=== PATIENT | female | born 1985 | race Caucasian/White ===

== ENCOUNTER 2018-05-09 08:46 | Inpatient (IN) | payer MEDICAID ==
[~2018-05-09] VITALS: Ht 167.6 cm; Wt 113.4 kg
[~2018-05-09 08:46] MED LIST: ACE3 PO; ALBU8.5H12 IH; BUSP10TA95 PO; CITA-137 PO; CLI150 PO; CLON-327 PO; DUL100/5PT INH; NO CURRENT MEDS; NO ROUTINE MEDS; ONDA4TAB97 PO; PARO-243 PO; PER PO; PNV1COMB5; PRO25 PO
[2018-05-09] MEDS ORDERED: OXYTOCIN 30 UNIT/D5LR 500 ML 500 ML IV PRN ×2 (09:02→12:49)
[2018-05-09] MEDS ORDERED: FAMOTIDINE(*) 20MG/50ML PREMIX 50 ML IVPB PRN (09:02)
[2018-05-09] MEDS ORDERED: LIDOCAINE/SOD BICARB 8.4% SYR SC PRN (09:05)
[2018-05-09] MEDS ORDERED: LIDOCAINE 1% LOCAL 300 MG/30ML INJ PRN (09:05)
[2018-05-09] MEDS ORDERED: FLUSH 10 ML SYR IVP PRN (09:05)
[2018-05-09] MEDS ORDERED: METOCLOPRAMIDE 10 MG/2 ML SDV IVP PRN (09:05)
[2018-05-09] MEDS ORDERED: cefOXitin/DEX(*) 2GM/50ML PREM 50 ML IVPB PRN (09:05)
[2018-05-09] MEDS ORDERED: fentaNYL CITR 100 MCG/2 ML AMP IVP PRN (09:05)
[2018-05-09] MEDS ORDERED: LIDOCAINE/PF 2% 200MG/10ML AMP 200 MG/10 ML AMPUL EPI PRN (09:10)
[2018-05-09] MEDS ORDERED: BUPIVACAINE 0.25% MPF INJ EPI PRN (09:10)
[2018-05-09] MEDS ORDERED: LIDO/EPI 2% MPF 1:200,000 20ML EPI PRN (09:10)
[2018-05-09] MEDS ORDERED: fentaNYL CITR 100 MCG/2 ML AMP IT PRN (09:10)
[2018-05-09] MEDS ORDERED: BUPIVACAINE 0.5% INJ 30ML VIAL EPI PRN (09:10)
[2018-05-09 09:20] VITALS: BP 145/86; Ht 167.6 cm; Wt 113.4 kg
[2018-05-09 09:20] LABS: PLATELET COUNT, AUTOMATED 243 K/uL (150-450)
[2018-05-09] MEDS ORDERED: ONDANSETRON 4 MG/2 ML VIAL IVP ONE (09:20)
[2018-05-09] MEDS: LR(*) 1000 ML BAG 1,000 ML IV SCH ×4 (09:29→15:42)
[2018-05-09] MEDS ORDERED: EPIDURAL KEYS XX PRN (09:30)
[2018-05-09] MEDS ORDERED: ONDANSETRON 4 MG/2 ML VIAL ONE (09:32)
[2018-05-09] MEDS: FENTANYL/ROPIVACAINE 100 ML BAG EPI PRN (10:12)
--- NOTE | 2018-05-09 13:39 | History & Physical ---
History of Present Illness Age of Patient: 32 : 4 Para or TPAL: 0 EDC per LMP: May 11, 2018 Estimated Gestational Age: 39.5 Chief Complaint Labor History of Present Illness Presents for labor this morning. Reports contractions regular and painful since 2-3 am. No leaking fluid. uncomplicated to date other than obesity. Presented at 6.5 cm and is now 9 cm. Station is still very high however. Past Medical, Surgical, Family and Obstetric Histories reviewed. Please see ACOG chart. History Allergies: Coded Allergies: No Known Drug Allergies (Unverified , 05/09/18) Med Rec Home Meds Active Scripts Albuterol Sul Hfa 90 Mcg 8 Gm (VENTOLIN HFA 90 MCG 8 GM) 8.5 Gm Hfa.aer.ad, 2 PUFF IH Q4-6H, #1 Prov:ELIZABETH FLORES DO 11/30/14 Reported Medications Pnv #116/Iron Fumarate/Fa/Dha (EXPECTA COMBO PACK) 1 Each Combo..pkg 04/24/18 Mometasone/Formoterol (DULERA 100 MCG/5 MCG INHALER) 13 Gm Inh, 2 PUFF INH QDAY, INH 03/15/15 Review of Systems All Systems Reviewed/Normal: Yes, Except as Noted Exam General Exam General Apperance: Alert/Awake/No Acute Distress Neuro: No Gross deficits Eyes: Normal Extraocular Movement & Vison Cardiovascular: Regular Rate and Rhythm Respiratory: No Respiratory Distress, Clear to Auscultation Abdomen: Soft, Non-Tender, Non-Distended Extremities: No Cyanosis,Clubbing or Edema Integumentary: Skin Intact without Lesions or Rash Psychological: Alert & Oriented X3, Appropriate Mood & Affect Cervical Dialation: 9 Cervical Effacement (%): 100 Station: -1 Presentation: Vertex Fetus Heart Tone Variabilty: Moderate FHT Accelerations: 15X15 FHT Category: I Medical Decision Making Data Points Result Diagram: 05/09/18 0905 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
[2018-05-09] MEDS ORDERED: HYDROCORTISONE 2.5% CR 30GM TB PR PRN (18:30)
[2018-05-09] MEDS ORDERED: ACETAMINOPHEN 325 MG TAB PO PRN (18:30)
[2018-05-09] MEDS ORDERED: MAGNESIUM HYDROXIDE* 30ML UDCP PO PRN (18:30)
--- NOTE | 2018-05-09 18:35 | OB Delivery Note ---
Delivery Note Vaginal Delivery Type: Spont. Vaginal Delivery Delivery Date: May 09, 2018 Delivery Time: 17:38 Estimated Gestational Age(wks): 39.5 Delivery Anesthesia: Epidural Sex: Male Infant Weight (gms): 3430 [place] Apgars: 1 Minute (9), 5 Minute (10) Repair Needed: Laceration, 1st Degree Estimated Blood Loss: 300 Delivery Complications: Laceration Notes: Pt in dorsal lithotomy position and pushing effectively. Brought vtx to position and delivered over first degree lacerations. Compound presentation in KIKO position with left hand up by infants chin. Nuchal cord x 1. Remainder of baby delivered without difficulty. Placenta delivered intact and spontaneous. Laceration repaired with 2-0 Chromic without complication. Bleeding light and uterus firm. 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
--- NOTE | 2018-05-09 19:13 | Anesthesia OB Pre-Anes Eval ---
History of Present Illness Anesthesia Start Date: May 09, 2018 Anesthesia Start Time: 09:35 OB Anesthesia Diagnosis: spontaneous labor Current Complication: obesity : 1 Result Diagram: 05/09/18 0905 Weight (Pounds): 250 Past Medical History Medical History: asthma (No recent exacerbations) Surgical History: noncontributory Previous Anesthesia: general Attended Childbirth Classes?: No Hx Anesthesia Reactions: No Hx Family Anesthesia Reaction: No Past Complications: obesity, other (Miscarriage X1, Ectopic X2) Home Meds Active Scripts Albuterol Sul Hfa 90 Mcg 8 Gm (VENTOLIN HFA 90 MCG 8 GM) 8.5 Gm Hfa.aer.ad, 2 PUFF IH Q4-6H, #1 Prov:ELIZABETH FLORES DO 11/30/14 Reported Medications Pnv #116/Iron Fumarate/Fa/Dha (EXPECTA COMBO PACK) 1 Each Combo..pkg 04/24/18 Mometasone/Formoterol (DULERA 100 MCG/5 MCG INHALER) 13 Gm Inh, 2 PUFF INH QDAY, INH 03/15/15 Allergies: Coded Allergies: No Known Drug Allergies (Unverified , 05/09/18) Anesthesia OB ROS Pulmonary: smoker (pks/day/yrs) Airway Class: ll GI ROS: clear liquids, ice chips Last Solids Date: May 09, 2018 Last Solids Time: 04:00 ASA Classification: 2 Assessment and Plan Anesthesia Plan: CSE Anesthesia Stop Day: May 09, 2018 Anesthesia Stop Time: 17:50 Epidural Catheter Removal: Removed by: (Catheter will be removed by RN at more convenient time.) SURESH BECERRA CRNA May 09, 2018 11:57
--- NOTE | 2018-05-09 19:15 | Procedure Note ---
Anesthetic Placement Note Anesthesia Plan: CSE Permit for Anesthesia Signed: Yes Anesthesia Technique: Patient Sitting Anesthesia Prep: Betadine Interspace: L 4-5 Local Anesthetic: 1% Lidocaine, 25 Gauge Needle Amount Local - cc's: 6 Anesthesia Needle: 17g Touhy/Schliff Anesthesia Attempts: 3 Loss of Resistance: Normal Saline Depth of EDILMA (cm): 9 Intrathecal Needle: 27 Gauge Pencan Cerebral Spinal Fluid: Yes, Clear Catheter Insertion (cm): 6 Catheter Type: Mejia - Spring Wound Epidural Dressing: Tegaderm, Tape, Adhesive [place] Anesthesia Tray: Lot Number ([id number]), Expiration Date (2019-05-07), Reference Number ([id number]) Comment: Attempted SAB L3-4 due to pt's inability to remain immobile, unsuccessful (pt. very nervous, jumpy). Attempted epidural placement at L3-4 without success. Moved down to L4-5, able to place epidural needle using midline approach. IT i njection using 27ga needle, but not good CSF flow before injection (no heme or paresthesia). Catheter threaded easily without heme or paresthesia, negative aspiration. Good analgesia after loading doses with minimal motor block, R=L. Anesthesia Medications: Intrathecal Dose: mcg Fentanyl (50), mg Marcaine MPF (2.5), Time (1000) Epidural Test Dose: 1.5 Lido/Epi (1:200,000), Dose - mL (3), Time (1002), Negative (No symptoms IV or IT injection.) Epidural Loading Dose: 0.2% Ropivicaine, With Fentanyl 2mcg/ml, Dose - ml (15), Time (1010) Epidural Infusion: 0.2% Ropivicaine, With Fentanyl 2mcg/ml, Start Time: (1021) Epidural Pump Setting: Bolus Dose - mL (5), Lockout - Minutes (15), Maintenance Rate - mL/hr (10), Maximum per Hour - mL (25) Complications: None Comment: Epidural infusion stopped from [id number] at pt's request because of profound sensory/motor block BLE's. Infusion restarted at 1430 at rate of 8ml/hour. otherwise unchanged. 1645 Pt now C/O increased pain with contractions and more pronounced perineal pain. Epidural bolus dose of 10ml using infusion mix. 1710 Pt reports discomfort greatly improved, pushing. 1750 Epidural infusion D/C after uneventful vaginal delivery. SURESH BECERRA CRNA May 09, 2018 12:11
[2018-05-09] MEDS: GLYCERIN/WITCH HAZEL LEAF 1 PK TP PRN (19:33)
[2018-05-09] MEDS: BENZOCAINE 20% 60 ML BTL TP PRN (19:33)
[2018-05-09] MEDS: IBUPROFEN 800 MG TAB PO SCH (19:33)
[2018-05-09] MEDS: DOCUSATE CALCIUM 240 MG CAP PO SCH (19:33)
[2018-05-09] MEDS: LANOLIN OINT 7 GM TUBE TP PRN (19:33)
[2018-05-09] MEDS ORDERED: LR(*) 1000 ML BAG 1,000 ML ONE (20:42)
[2018-05-09 21:32] VITALS: BP 137/72
[2018-05-09 22:29] VITALS: BP 135/82
[2018-05-09] MEDS: APAP/HYDROCODONE 325/5 TAB PO PRN (22:32)
[2018-05-10] VITALS (7 sets, daily range): BP systolic 106–130; BP diastolic 52–73
[2018-05-10] MEDS: IBUPROFEN 800 MG TAB PO SCH ×3 (04:16→20:07)
[2018-05-10] MEDS: APAP/HYDROCODONE 325/5 TAB PO PRN ×2 (07:48→12:25)
[2018-05-10] MEDS: DOCUSATE CALCIUM 240 MG CAP PO SCH ×2 (09:52→20:07)
--- NOTE | 2018-05-10 10:44 | OB/GYN Progress Note ---
OB Subjective Progress Notes Subjective 32 yo female post day 1 from spontaneous vaginal delivery. Doing well. Moderate pain, controlled with medication. Breast feeding, baby with good latch. Moderate vaginal bleeding. Voiding well. Tolerating PO, no nausea/vomiting. Passing flatus. GI: POS Flatus; NEG Nausea, NEG Vomiting, NEG Bowel Movement : Voiding Well, Vaginal Bleeding, Moderate Pain: Moderate, Tolerating PO Pain Meds Neurological: No Headache Eyes: No Visual Disturbances OB Objective Physical Exam Vital Signs Date Time Temp Pulse Resp B/P (MAP) Pulse Ox O2 Delivery O2 Flow Rate FiO2 05/10/18 07:40 97.9 67 14 106/52 (70) Room Air 05/09/18 22:29 93 Intake and Output 05/10/18 06:59 Intake Total 3700 ml Output Total 950 ml Balance 2750 ml Intake IV Total 3700 ml Output Urine Total 950 ml # Voids 3 General Appearance: Alert/Awake/No Acute Distress Neurological: No Gross deficits Eyes: Normal Extraocular Movement & Vison Cardiovascular: Normal Rhythm & Peripheral Pulses Respiratory: No Respiratory Distress, Clear to Auscultation Abdomen: Fundus Firm, Tender (mild) Extremities: Edema (mild peripheral edema, no pitting) Integumentary: Skin Intact without Lesions or Rash Psychological: Alert & Oriented X3, Appropriate Mood & Affect Result Diagram: 05/10/18 0618 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 Plan for discharge home tomorrow. Continue routine post- care. RONAK HUSTON May 10, 2018 10:44
--- NOTE | 2018-05-10 13:25 | Anesthesia Post Eval Note ---
Anesthesia Post Eval Note Stabil, afebrile. Pt able to participate in Eval: Yes Cardiovascular Status: Satisfactory Respiratory Status: Satisfactory Pain Managment: Satisfactory PO Nausea/Vomiting: Satisfactory Temperature Management: Satisfactory Mental Status: Satisfactory, Alert, Oriented X3 Post-Op Hydration Status: Satisfactory, Tolerating PO Well, Voiding w/o Difficulty Anesthesia Type: CSE Anesthesia Tolerance: Ambulatory without symptoms PDPH, no apparent complications. SURESH BECERRA DIRECTOR SHIP May 10, 2018 13:25
[2018-05-11 03:05] VITALS: BP 129/82
[2018-05-11] MEDS: IBUPROFEN 800 MG TAB PO SCH ×2 (03:32→11:54)
[2018-05-11 08:15] VITALS: BP 133/77
[2018-05-11] MEDS: DOCUSATE CALCIUM 240 MG CAP PO SCH (08:21)
[2018-05-11] MEDS: APAP/HYDROCODONE 325/5 TAB PO PRN (08:21)
[2018-05-11] MEDS ORDERED: MEASLES,MUMP,RUBELLA VAC 0.5ML SUBQ ONE (09:00)
[2018-05-11] MEDS ORDERED: DIPHTH/TETANUS/ACEL. PERTUSSIS IM ONLY ONE (09:00)
[2018-05-11] MEDS ORDERED: INFLUENZA VIRUS VAC 0.5ML SYR IM ONLY ONE (09:00)
[2018-05-11] MEDS ORDERED: HYDR-4309 PO (09:03)
[2018-05-11] MEDS ORDERED: IBUP800T37 PO (09:05)
[2018-05-11] MEDS ORDERED: ONDA4TAB PO (09:05)
--- NOTE | 2018-05-11 09:05 | OB/GYN Discharge Summary ---
Discharge Summary Reason for Hosp/Final Diag: (1) 39 weeks gestation of (2) Normal labor Hospital Course & Plan: Doing well post . Plan for discharge home tomorrow. Continue routine post- care. [place] Vital Signs Vital Signs Date Time Temp Pulse Resp B/P (MAP) Pulse Ox O2 Delivery O2 Flow Rate FiO2 05/11/18 03:05 97.6 58 18 129/82 (98) 95 05/10/18 20:20 Room Air Weight (Pounds): 250 Result Diagram: 05/10/18617 Condition: Improved Discharge: Home, Self Group Home Meds Active Scripts Ondansetron (ZOFRAN ODT) 4 Mg Tab.rapdis, 4 MG PO Q8H for Nausea, #10 TAB.ANNA Prov:RONAK HUSTON 05/11/18 Ibuprofen (IBUPROFEN) 800 Mg Tablet, 1 TAB PO Q8H, #30 TAB 0 Refills Take with food every 8 hours. Prov:RONAK HUSTON 05/11/18 Hydrocodone Bit/Acetaminophen (NORCO 5-325 TABLET) 1 Each Tablet, 1 EACH PO Q4- 6H for PAIN, #6 TAB Prov:RONAK HUSTON 05/11/18 Albuterol Sul Hfa 90 Mcg 8 Gm (VENTOLIN HFA 90 MCG 8 GM) 8.5 Gm Hfa.aer.ad, 2 PUFF IH Q4-6H, #1 Prov:ELIZABETH FLORES DO 11/30/14 Reported Medications Pnv #116/Iron Fumarate/Fa/Dha (EXPECTA COMBO PACK) 1 Each Combo..pkg 04/24/18 Mometasone/Formoterol (DULERA 100 MCG/5 MCG INHALER) 13 Gm Inh, 2 PUFF INH QDAY, INH 03/15/15 [facility] [phone], Dr. Santoro [phone] Follow up in: 6 wks PP or PO Discharge Diet: As Tolerates Discharge Activity: As Tolerates, Pelvic Rest RONAK HUSTON May 11, 2018 09:05
--- NOTE | 2018-05-11 11:11 | OB/GYN Progress Note ---
OB Subjective Progress Notes Subjective 32 yo female post- day 2 from vaginal delivery. Doing well without issues overnight. Breast feeding, baby with good latch. Tolerating PO, no nausea/vomiting. Vaginal bleeding slowing down. GI: POS Flatus; NEG Nausea, NEG Vomiting : Voiding Well, Vaginal Bleeding, Moderate Pain: Moderate, Tolerating PO Pain Meds Neurological: No Headache Eyes: No Visual Disturbances OB Objective Physical Exam Vital Signs Date Time Temp Pulse Resp B/P (MAP) Pulse Ox O2 Delivery O2 Flow Rate FiO2 05/11/18 08:15 97.8 69 18 133/77 (95) 94 Room Air Intake and Output 05/11/18 07:00 Intake Total 580 ml Balance 580 ml Intake Oral 580 ml # Voids 1 General Appearance: Alert/Awake/No Acute Distress Neurological: No Gross deficits Eyes: Normal Extraocular Movement & Vison Cardiovascular: Normal Rhythm & Peripheral Pulses Respiratory: No Respiratory Distress, Clear to Auscultation Abdomen: Fundus Firm, Tender (mild) Extremities: Edema (mild peripheral edema, no pitting - improved) Integumentary: Skin Intact without Lesions or Rash Psychological: Alert & Oriented X3, Appropriate Mood & Affect Result Diagram: 05/10/18 0618 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 Plan follow-up in 6 weeks RONAK HUSTON May 11, 2018 11:11
[2018-05-11 11:15] VITALS: BP 130/77
[2018-05-11] MEDS: BENZOCAINE 20% 60 ML BTL TP PRN (13:30)
[2018-05-11] MEDS: LANOLIN OINT 7 GM TUBE TP PRN (13:30)
[2018-05-11] MEDS: GLYCERIN/WITCH HAZEL LEAF 1 PK TP PRN (13:30)
== END 2018-05-11 15:17 | disposition home or self-care (01) | DRG 806 ==
LOC: OB 08:46
PROVIDERS: ADMIT Obstetrics & Gynecology; ATTEND Obstetrics & Gynecology
PROC: 10E0XZZ Delivery of Products of Conception, External Approach (ICD-10-PCS; principal; 2018-05-09)
PROC: 0HQ9XZZ Repair Perineum Skin, External Approach (ICD-10-PCS; 2018-05-09)
PROC: 3E0334Z Introduction of Serum, Toxoid and Vaccine into Peripheral Vein, Percutaneous Approach (ICD-10-PCS; 2018-05-09)
DX: O69.81X0 Labor and delivery complicated by cord around neck, without compression, not applicable or unspecified (principal); Z68.41 Body mass index [BMI] 40.0-44.9, adult; Z37.0 Single live birth; O36.0130 Maternal care for anti-D [Rh] antibodies, third trimester, not applicable or unspecified; O32.6XX0 Maternal care for compound presentation, not applicable or unspecified; O99.214 Obesity complicating childbirth; E66.9 Obesity, unspecified; O70.0 First degree perineal laceration during delivery; Z3A.39 39 weeks gestation of pregnancy
CPT/HCPCS: 36415; 85025; 85027; 85461; 86703; 86850; 86900; 86901; J2405; J2590; J2791; J3010; J7120; S0020